=== PATIENT | female | born 1975 | race Caucasian/White ===

== ENCOUNTER 2017-08-08 10:18 | Emergency (ER) | payer OTHER ==
[2017-08-08 13:16] VITALS: BP 113/69
--- NOTE | 2017-08-08 14:19 | UC ---
Complaint Female HPI - HPI Summary HPI Summary: Some discomfort at the urethra. NO hematuria, fever, flank pain, vomiting. She has hx of uti and this feels similar to prior. NO vaginal complaint such as discharge or vaginal pain. - History Of Current Complaint Chief Complaint: UCGU Stated Complaint: URINARY Time Seen by Provider: 08/08/17 13:03 Hx Obtained From: Patient Hx Last Menstrual Period: 07/16/17 has had tubal ?: No Onset/Duration: Gradual Onset, Lasting Hours Timing: Constant, Lasting Hours Severity Initially: Moderate Severity Currently: Moderate Pain Intensity: 0 Character: Not Applicable - she says it is discomfort. Aggravating Factor(s): Urination Alleviating Factor(s): Nothing Associated Signs And Symptoms: Negative: Fever, Back Pain, Vaginal Bleeding/ Discharge, Vaginal Discharge, Nausea, Vomiting(# Of Episodes =), Genital Swelling, Genital Blisters - Allergies/Home Medications Allergies/Adverse Reactions: Allergies Allergy/AdvReac Type Severity Reaction Status Date / Time ciprofloxacin [From Cipro] Allergy Intermediate Hives Verified 08/08/17 13:18 ranitidine [From Zantac] Allergy Intermediate Hives Verified 08/08/17 13:18 Home Medications: Home Medications DULoxetine DR CAP* [Cymbalta CAP*] 90 mg PO BEDTIME 08/08/17 [History Confirmed 08/08/17] PMH/Surg Hx/FS Hx/Imm Hx Previously Healthy: No - uti - Surgical History Surgical History: None - Family History Known Family History: Positive: Other - no related urinary symptoms in the family. - Social History Alcohol Use: Occasionally Substance Use Type: None Smoking Status (MU): Never Smoked Tobacco Review of Systems Genitourinary: Other - urethral discomfort. All Other Systems Reviewed And Are Negative: Yes Physical Exam Triage Information Reviewed: Yes Appearance: Well-Appearing, No Pain Distress, Well-Nourished Vital Signs: Initial Vital Signs Temp 99.4 F 08/08/17 13:11 Pulse 88 08/08/17 13:11 Resp 16 08/08/17 13:11 BP 113/69 08/08/17 13:11 Pulse Ox 100 08/08/17 13:11 Vital Signs Reviewed: Yes Eyes: Positive: Conjunctiva Clear, Conjunctiva Inflamed ENT: Positive: Normal ENT inspection Neck: Positive: Supple, Nontender, No Lymphadenopathy Respiratory: Positive: Lungs clear, Normal breath sounds, No respiratory distress, No accessory muscle use. Negative: Respiratory distress, Decreased breath sounds, Accessory muscle use, Crackles, Rhonchi, Stridor, Wheezing Cardiovascular: Positive: RRR, No Murmur, Pulses Normal Abdomen Description: Negative: CVA Tenderness (R), CVA Tenderness (L), Distended , Guarding Musculoskeletal: Positive: ROM Intact, No Edema Neurological: Positive: Muscle Tone Normal. Negative: Fatigued Psychological: Positive: Age Appropriate Behavior Skin: Negative: rashes Complaint Female Dx - Course Course Of Treatment: U dip clean. she says this feels like uti. If urine culture neg then she agrees to f/u with resin maker. - Differential Dx/Diagnosis Provider Diagnoses: uti Discharge - Discharge Plan Condition: Good Disposition: HOME Prescriptions: Nitrofurantoin Macrocrystals* [Macrodantin*] 100 mg PO BID #20 cap Patient Education Materials: Urinary Tract Infection in Women (ED) Referrals: No Primary Care Phys,NOPCP [Primary Care Provider] - Additional Instructions: If urine culture neg please follow up with your resin maker.
== END 2017-08-08 14:21 | disposition home or self-care (01) ==
LOC: UCCORT 10:18
DX: N39.0 Urinary tract infection, site not specified (principal)
CPT/HCPCS: 81003; 87086; 99202; G0463